=== PATIENT | male | born 1985 | race Caucasian/White ===

== ENCOUNTER → 2017-03-15 | Outpatient (CLI) | payer OTHER ==
--- NOTE | 2017-03-15 14:20 | KCIC ---
PROCEDURE MRI right knee without contrast dated 03/15/2017. HISTORY Right knee pain for 8 months. TECHNIQUE Routine multiplanar multisequence MR imaging right knee performed. COMPARISON None. FINDINGS Bone marrow signal is homogeneous. No marrow edema. Articular cartilage is intact. No osteochondral defect. No joint effusion. Small popliteal cyst. No intra-articular loose body. Anterior cruciate and posterior cruciate ligaments are intact. Medial and lateral collateral complexes are intact. Iliotibial band, popliteus tendon and pes anserine complex within normal limits. Quadriceps and patellar tendon are intact. No abnormality of the medial or lateral retinaculum. Minimal increased signal within the substance of the distal patellar tendon, suggestive of mild tendinosis. Both menisci are normal in morphology and signal. No articular surface tear or parameniscal cyst. IMPRESSION - No evidence of internal derangement. - Tiny popliteal cyst. - Mild patellar tendinosis. Electronically signed by: Clayton Sneed (March 15, 2017 14:18:38)
== END | disposition home or self-care (01) ==
LOC: KCIC MRI 13:42
PROVIDERS: ATTEND Physician Assistant
DX: M25.511 Pain in right shoulder (principal); M71.21 Synovial cyst of popliteal space [Baker], right knee
CPT/HCPCS: 73721